=== PATIENT | male | born 1950 | race Caucasian/White ===

== ENCOUNTER 2019-11-23 19:51 | Emergency (ER) | payer OTHER, MEDICARE ==
[~2019-11-23] VITALS: Ht 167.6 cm; Wt 84.1 kg
--- NOTE | 2019-11-23 20:25 | REPVR ---
PROCEDURE INFORMATION: Exam: CT Head Without Contrast Exam date and time: 11/23/2019 8:14 PM Age: 69 years old Clinical indication: Injury or trauma; Fall; Initial encounter; Blunt trauma (contusions or hematomas) and laceration; Without residual foreign body; Scalp; Additional info: [facility] TECHNIQUE: Imaging protocol: Computed tomography of the head without contrast. Radiation optimization: All CT scans at this facility use at least one of these dose optimization techniques: automated exposure control; mA and/or kV adjustment per patient size (includes targeted exams where dose is matched to clinical indication); or iterative reconstruction. COMPARISON: No relevant prior studies available. FINDINGS: Brain: No intracranial mass, mass effect or midline shift. No acute intracranial hemorrhage. No CT evidence of acute cortical infarct. Ventricles: Ventricles, cisterns, and sulci are normal in size for age. Bones/joints: No calvarial fracture or destructive process. Sinuses: Imaged paranasal sinuses are normally aerated. Mastoid air cells: Mastoid air cells and middle ear structures are normally aerated. Orbits: Imaged orbits are unremarkable. Soft tissues: Left posterior vertex extracranial soft tissue swelling. IMPRESSION: 1. Left posterior vertex extracranial scalp swelling 2. No acute or concerning focal intracranial abnormality. Electronically signed by: Roly Renteria On 11/23/2019 20:25:31 PM
[2019-11-23] MEDS ORDERED: TETANUS/DIPHTHERIA TOX ADSORB ADULT 0.5ML SYR/VIAL (90714) IM ONE (21:00)
[2019-11-23 21:14] VITALS: BP 130/60
[2019-11-23] MEDS ORDERED: JANU100T (21:16)
[2019-11-23] MEDS ORDERED: METF10004 (21:16)
== END 2019-11-23 21:31 | disposition home or self-care (01) ==
LOC: EDBD 19:51 → M ED 19:51
DX: S01.01XA Laceration without foreign body of scalp, initial encounter (principal); W19.XXXA Unspecified fall, initial encounter; Y92.410 Unspecified street and highway as the place of occurrence of the external cause; Y93.9 Activity, unspecified; Y99.9 Unspecified external cause status; E11.9 Type 2 diabetes mellitus without complications; Z79.84 Long term (current) use of oral hypoglycemic drugs

== ENCOUNTER → 2022-10-07 | Outpatient (REF) | payer OTHER, MEDICARE ==
[~2022-10-07] MED LIST: JANU100T; METF10004
[2022-10-09 08:10] LABS: LDL DIRECT 145 mg/dL (0-99)
== END ==
LOC: M LAB REF 16:29
PROVIDERS: ATTEND Nurse Practitioner Family
DX: E78.00 Pure hypercholesterolemia, unspecified (principal)